=== PATIENT | male | born 1995 | race African-American/Black ===

== ENCOUNTER → 2017-12-09 | Outpatient (CLI) | payer OTHER ==
[2017-12-09 13:25] LABS: Basophils % (A) 1 %; Eosinophils # (A) 0.2 k/uL (0-0.7); Eosinophils % (A) 4 %; HCT 44.5 % (39.0-53.0); HGB 15.1 gm/dL (13.0-17.5); Lymphocytes # (A) 1.7 k/uL (1.0-4.8); Lymphocytes % (A) 37 %; MCH 28.4 pg (25.0-35.0); MCHC 33.9 g/dL (31.0-37.0); MCV 83.7 fL (80.0-100.0); Mean Platelet Volume 8.5; Monocytes # (A) 0.2 k/uL (0-1.0); Monocytes % (A) 5 %; Neutrophils # (A) 2.4 k/uL (1.3-7.7); Neutrophils % (A) 52 %; Platelet Count 176 k/uL (150-450); RBC 5.32 m/uL (4.30-5.90); RDW 12.5 % (11.5-15.5); WBC 4.5 k/uL (4.0-11.0)
[2017-12-09 13:48] LABS: ALT 18 U/L (21-72); AST 17 U/L (17-59); Albumin 4.7 g/dL (3.5-5.0); Alkaline Phosphatase 50 U/L (38-126); Anion Gap 14 mmol/L; Blood Urea Nitrogen 16 mg/dL (9-20); Carbon Dioxide 27 mmol/L (22-30); Chloride 104 mmol/L (98-107); Glucose 91 mg/dL (74-99); Potassium 4.7 mmol/L (3.5-5.1); Sodium 145 mmol/L (137-145); Total Bilirubin 0.6 mg/dL (0.2-1.3); Total Protein 7.7 g/dL (6.3-8.2)
[2017-12-09 19:17] LABS: Vitamin D 25 Hydroxy 24.5 ng/mL (30.0-100.0)
== END | disposition home or self-care (01) ==
LOC: LABWHC1 13:02
PROVIDERS: ATTEND Psychiatry & Neurology Neurology
DX: E55.9 Vitamin D deficiency, unspecified (principal); R53.83 Other fatigue; R41.3 Other amnesia
CPT/HCPCS: 36415; 80053; 82306; 82607; 84207; 84439; 84443; 84481; 85025

== ENCOUNTER 2019-02-17 12:13 | Emergency (ER) | payer OTHER ==
[2019-02-17 12:18] VITALS: BP 123/76; PULSE 73; RESP 18; TEMP 98.7
--- NOTE | 2019-02-17 14:13 | ED ---
General Adult HPI - General Chief complaint: Upper Respiratory Infection Stated complaint: Coughing up blood Time Seen by Provider: 02/17/19 14:02 Source: patient, RN notes reviewed, old records reviewed Mode of arrival: ambulatory Limitations: no limitations - History of Present Illness Initial comments: 23-year-old male patient history of asthma presents ED approximately 2 days of cough, congestion, sore throat, otalgia. Patient denies any fevers or chills nausea vomiting diarrhea at home. Patient denies any chest pain shortness of breath. Patient denies any abdominal pain. Denies any other complaints at this time. Patient is fully vaccinated. Patient does report that he has had a small small amount of blood-streaked mucus. Systemic: Pt denies fatigue, fever/chills, rash. Pt denies weakness, night sweats, weight loss. Neuro: Pt denies headache, visual disturbances, syncope or pre-syncope. HEENT: Pt denies ocular discharge or irritation, otalgia, rhinorrhea, pharyngitis or notable lymphadenopathy. Cardiopulmonary: Pt denies chest pain, SOB, heart palpitations, dyspnea on exertion. Abdominal/GI: Pt denies abdominal pain, n/v/d. : Pt denies dysuria, burning w/ urination, frequency/urgency. Denies new onset urinary or bowel incontinence. MSK: Pt denies myalgia, loss of strength or function in extremities. Neuro: Pt denies new onset weakness, paresthesias. - Related Data Home Medications Medication Instructions Recorded Confirmed Cyclobenzaprine [Flexeril] 5 mg PO TID 05/07/15 05/11/15 Previous Rx's Medication Instructions Recorded Albuterol Inhaler [Ventolin Hfa 1 - 2 puff INHALATION Q4-6H PRN #1 02/17/19 Inhaler] inhaler methylPREDNISolone Dose Pack 4 mg PO DIRECTED #21 package 02/17/19 [Medrol Dose Pack] Allergies Allergy/AdvReac Type Severity Reaction Status Date / Time No Known Drug Allergies Allergy Unknown Verified 05/11/15 13:49 Review of Systems ROS Statement: Those systems with pertinent positive or pertinent negative responses have been documented in the HPI. ROS Other: All systems not noted in ROS Statement are negative. Past Medical History Past Medical History: Asthma Additional Past Medical History / Comment(s): numbness, tingling in eric arm intermittent, bulging disc in neck History of Any Multi-Drug Resistant Organisms: None Reported Additional Past Surgical History / Comment(s): eric tubes in ears Past Anesthesia/Blood Transfusion Reactions: No Reported Reaction Past Psychological History: No Psychological Hx Reported Smoking Status: Never smoker Past Alcohol Use History: Rare Past Drug Use History: Marijuana General Exam - General Exam Comments Initial Comments: Constitutional: NAD, AOX3, Pt has pleasant affect. HEENT: NC/AT, trachea midline, neck supple, no lymphadenopathy. Posterior pharynx non erythematous, without exudates. External ears appear normal, without discharge. TM pale max bilaterally, no bulging, no erythema, no perforation. Mucous membranes moist. Eyes PERRLA, EOM intact. There is no scleral icterus. No pallor noted. Cardiopulmonary: RRR, no murmurs, rubs or gallops, no JVD noted. Lungs CTAB in anterior and posterior montoya. No peripheral edema. Abdominal exam: Abdomen soft and non-distended. Abdomen non-tender to palpation in all 4 quadrants. Bowel sounds active in LLQ. No hepatosplenomegaly. No ecchymosis Neuro: CN II-XII grossly intact. No nuchal rigidity. No raccon eyes, no rojas sign, no hemotympanum. No cervical spinal tenderness. MSK: No posterior calf tenderness bilaterally, homans sign negative bilaterally. Posterior tibialis and radial pulse +2 bilaterally. Sensation intact in upper and lower extremities. Full active ROM in upper and lower extremities, 5/5 stregnth. Limitations: no limitations Course Vital Signs 02/17/19 12:16 Temperature 98.7 F Pulse Rate 73 Respiratory 18 Rate Blood Pressure 123/76 O2 Sat by Pulse 99 Oximetry Medical Decision Making - Medical Decision Making 23-year-old male patient history of asthma presents ED approximately 2 days of cough, congestion, sore throat, otalgia. Patient denies any fevers or chills nausea vomiting diarrhea at home. Patient denies any chest pain shortness of breath. Patient denies any abdominal pain. Denies any other complaints at this time. Patient is fully vaccinated. Patient does report that he has had a small small amount of blood-streaked mucus. Patient vital signs stable, afebrile. Physical exam did not display acute pathology. Influenza, group A strep negative. Chest x-ray displayed no acute process. Patient will be discharged. Patient likely has viral syndrome. Patient will follow-up with primary care of right and 1-2 days. Patient return to ER if condition worsens in any way. Case discussed with Dr. Castelan. - Lab Data Lab Results 02/17/19 02/17/19 Range/Units 14:10 14:10 Influenza Type A RNA Not Detected (Not Detectd) Influenza Type B (PCR) Not Detected (Not Detectd) Group A Strep Rapid Negative (Negative) Disposition Clinical Impression: Viral syndrome, Bronchitis Disposition: HOME SELF-CARE Condition: Stable Instructions (If sedation given, give patient instructions): Viral Syndrome (ED) Additional Instructions: Patient to adhere to previously discussed treatment plan and will take medication(s) as directed. Patient to follow up with PCP in 1-2 days. Patient to return to ED if symptoms do not improve. Follow up with primary care provider in 1-2 days. Return to ER if condition worsens in any way. Prescriptions: methylPREDNISolone Dose Pack [Medrol Dose Pack] 4 mg PO DIRECTED #21 package Albuterol Inhaler [Ventolin Hfa Inhaler] 1 - 2 puff INHALATION Q4-6H PRN #1 inhaler PRN Reason: Cough Is patient prescribed a controlled substance at d/c from ED?: No Referrals: Mehrdad Garcia MD [Primary Care Provider] - 1-2 days
--- NOTE | 2019-02-17 14:29 | XR ---
EXAMINATION TYPE: XR chest 2V DATE OF EXAM: 02/17/2019 COMPARISON: NONE TECHNIQUE: PA and lateral views submitted. HISTORY: Cough FINDINGS: The lungs are clear and there is no pneumothorax, pleural effusion, or focal pneumonia. IMPRESSION: 1. No acute process.
== END 2019-02-17 14:59 | disposition home or self-care (01) ==
LOC: EC 12:13
DX: J45.909 Unspecified asthma, uncomplicated (principal); B34.9 Viral infection, unspecified; Z79.899 Other long term (current) drug therapy
CPT/HCPCS: 71046; 87081; 87430; 87502; 99284

== ENCOUNTER 2021-04-22 01:37 | Emergency (ER) | payer OTHER ==
[2021-04-22 01:45] VITALS: BP 148/90; PULSE 68; RESP 20; TEMP 98.2
--- NOTE | 2021-04-22 02:00 | ED ---
Head Injury HPI - General Chief complaint: Head Injury Stated complaint: Head injury Time Seen by Provider: 04/22/21 01:47 Source: patient, family Mode of arrival: ambulatory Limitations: no limitations - History of Present Illness Initial comments: patient is a 26-year-old male presenting to the emergency Department with complaints of some mild right sided head pain. He states 4 days ago he accidentally hit his head on the corner of the shower door. He states he did not lose consciousness, there is no lacerations or bleeding to the area. He states over the last couple days he's been noticing that the same spot "feels funny." He denies having a significant headache, he states when he pushes on the right side of his head it does feel little tender. He denies any lightheadedness or dizziness, no neck pain. He denies any fevers or chills, no nausea or vomiting, he is not on blood thinners, no blurry vision. He has no further complaints. - Related Data Home Medications Medication Instructions Recorded Confirmed Cyclobenzaprine [Flexeril] 5 mg PO TID 05/07/15 05/11/15 Previous Rx's Medication Instructions Recorded Albuterol Inhaler (Mhu) [Ventolin 1 - 2 puff INHALATION Q4-6H PRN #1 02/17/19 Hfa Inhaler (Mhu)] inhaler methylPREDNISolone Dose Pack 4 mg PO DIRECTED #21 package 02/17/19 [Medrol Dose Pack] Allergies/Adverse reactions: Allergies Allergy/AdvReac Type Severity Reaction Status Date / Time No Known Drug Allergies Allergy Unknown Verified 04/22/21 01:45 Review of Systems ROS Statement: Those systems with pertinent positive or pertinent negative responses have been documented in the HPI. ROS Other: All systems not noted in ROS Statement are negative. Past Medical History Past Medical History: Asthma Additional Past Medical History / Comment(s): numbness, tingling in eric arm intermittent, bulging disc in neck History of Any Multi-Drug Resistant Organisms: None Reported Additional Past Surgical History / Comment(s): eric tubes in ears Past Anesthesia/Blood Transfusion Reactions: No Reported Reaction Past Psychological History: No Psychological Hx Reported Smoking Status: Never smoker Past Alcohol Use History: Rare Past Drug Use History: Marijuana General Exam - General Exam Comments Initial Comments: GENERAL: Patient is well-developed and well-nourished. Patient is nontoxic and in no acute distress. HEAD: Atraumatic, normocephalic. there are no hematomas. No signs of basal skull fracture. EYES: Pupils equal round and reactive to light, extraocular movements intact, sclera anicteric, conjunctiva are normal. Eyelids were unremarkable. ENT: TMs normal, nares patent, oropharynx clear without exudates. Moist mucous membranes. NECK: Normal range of motion, supple without lymphadenopathy or JVD. LUNGS: Unlabored respirations. Breath sounds clear to auscultation bilaterally and equal. No wheezes rales or rhonchi. HEART: Regular rate and rhythm without murmurs, rubs or gallops. ABDOMEN: Soft, nontender, normoactive bowel sounds. No guarding, no rebound. No masses appreciated. : Deferred MUSCULOSKELETAL: Normal extremities with adequate strength and normal range of motion, no pitting or edema. No clubbing or cyanosis. NEUROLOGICAL: Patient is alert and oriented x 3. Motor and sensory are also intact. Cranial nerves II through XII grossly intact. Symmetrical smile. Normal speech, normal gait. PSYCH: Normal mood, normal affect. SKIN: Warm, Dry, normal turgor, no rashes or lesions noted. Limitations: no limitations Course Vital Signs 04/22/21 01:39 Temperature 98.2 F Pulse Rate 68 Respiratory 20 Rate Blood Pressure 148/90 O2 Sat by Pulse 100 Oximetry Medical Decision Making - Medical Decision Making patient is a 26-year-old male here with some mild right-sided head discomfort after he hit it on a shower door 4 days ago. No loss of consciousness, he is not on blood thinners. No acute findings on exam, no acute neuro deficits. His pain is minimal at this time. No dizziness, no blurry visions. patient's CT of the head reveals no acute process. Discussed with patient that he may have a mild concussion. Recommended brain rest. He can take Tylenol or Motrin for any discomfort. He is agreeable to this plan of care and he is stable for discharge. He can follow up with his primary care physician. Disposition Clinical Impression: Mild concussion Disposition: HOME SELF-CARE Condition: Stable Instructions (If sedation given, give patient instructions): Concussion (ED) Additional Instructions: Please return to the Emergency Department if symptoms worsen or any other concerns. Continue to rest, limit up close activities such as phone usage, reading. Follow-up with your family doctor. Is patient prescribed a controlled substance at d/c from ED?: No Referrals: Mehrdad Garcia MD [Primary Care Provider] - 1-2 days Time of Disposition: 02:34
--- NOTE | 2021-04-22 02:16 | CT ---
EXAMINATION TYPE: CT brain wo con DATE OF EXAM: 04/22/2021 COMPARISON: 01/31/2012 HISTORY: headache, hit head, rt sided head pain CT DLP: 1125.40 mGycm Automated exposure control for dose reduction was used. Images obtained of the brain with no contrast. Ventricles have normal size. There is no mass effect nor midline shift. There is no sign of intracran ial hemorrhage. The calvarium is intact. IMPRESSION: Negative unenhanced head CT scan. No change.
== END 2021-04-22 02:43 | disposition home or self-care (01) ==
LOC: EC 01:37
DX: S06.0X0A Concussion without loss of consciousness, initial encounter (principal); J45.909 Unspecified asthma, uncomplicated; F12.90 Cannabis use, unspecified, uncomplicated; W22.8XXA Striking against or struck by other objects, initial encounter
CPT/HCPCS: 70450; 99284

== ENCOUNTER 2022-07-07 15:45 | Emergency (ER) | payer OTHER ==
[2022-07-07 16:14] VITALS: BP 124/75; PULSE 69; RESP 20; TEMP 98.2
--- NOTE | 2022-07-07 16:50 | XR ---
EXAMINATION TYPE: XR foot complete LT DATE OF EXAM: 07/07/2022 COMPARISON: NONE HISTORY: Sliver in the lateral foot TECHNIQUE: 3 views FINDINGS: Metatarsals are intact. I see no fracture nor dislocation. No evidence of radiopaque foreig n body. IMPRESSION: Negative left foot exam. A wood sliver is likely not visible on a plain x-ray. Ultrasound likely could detect a foreign body.
[2022-07-07] MEDS ORDERED: LIDOCAINE 1% INJ 10MG/ML (30 ML VIAL-PF) SQ ONE (17:34)
--- NOTE | 2022-07-07 17:41 | ED ---
Lower Extremity Injury HPI - General Chief Complaint: Extremity Injury, Lower Stated Complaint: [facility] - Sliver in foot Time Seen by Provider: 07/07/22 17:07 Source: patient, RN notes reviewed, old records reviewed Mode of arrival: ambulatory Limitations: no limitations - History of Present Illness Initial Comments: 27-year-old well-appearing male presents to the emergency room after kicking a wood pallet sustaining a splinter to his left foot lateral fifth metatarsal. Patient states he can feel the splinter just under the skin. States tetanus shot is up-to-date. MD Complaint: foot injury -: hour(s) (2) Type of Injury: puncture wound (wood splinter) - Related Data Home Medications Medication Instructions Recorded Confirmed Cyclobenzaprine [Flexeril] 5 mg PO TID 05/07/15 05/11/15 Previous Rx's Medication Instructions Recorded Albuterol Inhaler [Ventolin Hfa 1 - 2 puff INHALATION Q4-6H PRN #1 02/17/19 Inhaler] inhaler methylPREDNISolone Dose Pack 4 mg PO DIRECTED #21 package 02/17/19 [Medrol Dose Pack] Cephalexin [Keflex] 500 mg PO Q6HR 7 Days #28 cap 07/07/22 Allergies Allergy/AdvReac Type Severity Reaction Status Date / Time No Known Drug Allergies Allergy Unknown Verified 07/07/22 16:13 Review of Systems ROS Statement: Those systems with pertinent positive or pertinent negative responses have been documented in the HPI. ROS Other: All systems not noted in ROS Statement are negative. Past Medical History Past Medical History: Asthma Additional Past Medical History / Comment(s): numbness, tingling in eric arm intermittent, bulging disc in neck History of Any Multi-Drug Resistant Organisms: None Reported Additional Past Surgical History / Comment(s): eric tubes in ears Past Anesthesia/Blood Transfusion Reactions: No Reported Reaction Past Psychological History: No Psychological Hx Reported Smoking Status: Never smoker Past Alcohol Use History: Rare Past Drug Use History: Marijuana General Exam Limitations: no limitations General appearance: alert, in no apparent distress Head exam: Present: atraumatic Eye exam: Present: normal appearance. Absent: scleral icterus, conjunctival injection, periorbital swelling Neck exam: Present: full ROM. Absent: meningismus Respiratory exam: Absent: respiratory distress, accessory muscle use Cardiovascular Exam: Present: regular rate Extremities exam: Present: full ROM, normal capillary refill. Absent: pedal edema Left Foot/Toe exam: Present: tenderness, puncture wound (1 cm FB felt under the skin superficially no active bleeding) Neurovascular tendon exam: Present: no vascular compromise. Absent: abnormal cap refill, pallor, foot drop Neurological exam: Present: alert, oriented X3 Psychiatric exam: Present: normal affect, normal mood Skin exam: Present: warm, dry, normal color. Absent: cyanosis, diaphoretic Course Vital Signs 07/07/22 16:12 Temperature 98.2 F Pulse Rate 69 Respiratory 20 Rate Blood Pressure 124/75 O2 Sat by Pulse 100 Oximetry Procedures - Forgein Body Removal Soft Tissue Consent Obtained: verbal consent Site: foot (left) Anesthetic Used: lidocaine 1% Foreign Body Suspected: Wood Foreign Body Removed: yes (1cm) Foreign Body Removal Technique: Instrumentation Patient Tolerated Procedure: well Medical Decision Making - Medical Decision Making X-ray shows no evidence of foreign body, foreign body felt subcutaneously. 1 cm wooden splinter removed from the dorsal surface of the fifth metatarsal with no complications. Bacitracin dressing applied. Patient was directed to soak foot twice a day in warm soapy water. States tetanus shot was given 2 years ago and is up-to-date. He was prescribed antibiotics. Directed to return to the emergency room with any new or concerning symptoms Case discussed with Dr. Castelan Disposition Clinical Impression: Foreign body in foot, left Disposition: HOME SELF-CARE Additional Instructions: Soak foot in warm soapy water twice a day for the next 3 days. Take antibiotics as prescribed. Return to the emergency room with any new or concerning symptoms. Prescriptions: Cephalexin [Keflex] 500 mg PO Q6HR 7 Days #28 cap Is patient prescribed a controlled substance at d/c from ED?: No Referrals: Mehrdad Garcia MD [Primary Care Provider] - 1-2 days Time of Disposition: 18:13
[2022-07-07] MEDS ORDERED: BACITRACIN OINT 1 EACH PACKET TOPICAL ONE (18:13)
== END 2022-07-07 18:30 | disposition home or self-care (01) ==
LOC: EC 15:45
DX: S90.852A Superficial foreign body, left foot, initial encounter (principal); J45.909 Unspecified asthma, uncomplicated; Z79.51 Long term (current) use of inhaled steroids; W45.8XXA Other foreign body or object entering through skin, initial encounter; Y92.89 Other specified places as the place of occurrence of the external cause
CPT/HCPCS: 73630; 99283; J2001

== ENCOUNTER → 2022-11-24 | Outpatient (CLI) | payer BC ==
--- NOTE | 2022-11-24 09:44 | US ---
EXAMINATION TYPE: US abdomen complete DATE OF EXAM: 11/24/2022 COMPARISON: NONE CLINICAL HISTORY: R10.10 ABD PAIN. Intermittent RUQ pain & nausea x couple months, worse after eating TECHNIQUE: Multiple sonographic images of the abdomen are obtained. FINDINGS: EXAM MEASUREMENTS: Liver Length: 17.0 cm Gallbladder Wall: 0.2 cm CBD: 0.2 cm Spleen: 11.6 cm Right Kidney: 11.2 x 4.7 x 4.8 cm Left Kidney: 9.5 x 5.5 x 5.6 cm Pancreas: visualized portions wnl, tail limited by overlying midline bowel gas Liver: measures in upper limits of normal Gallbladder: wnl Evidence for sonographic Saenz's sign: no CBD: wnl Spleen: wnl Right Kidney: wnl Left Kidney: inferior pole limited by overlying bowel gas Upper IVC: wnl Abd Aorta: visualized portions wnl, limited by overlying midline bowel gas The liver is homogenous. The intrahepatic portion of the IVC and visualized abdominal aorta are with in normal limits. There is no evidence of shadowing mobile cholelithiasis. Common bile duct is unre markable. The visualized portions of the pancreas are homogenous. Distal body and tail obscured by o verlying bowel gas. The spleen is unremarkable. Kidneys are symmetric and free of hydronephrosis. N o renal lesions are seen on images obtained. IMPRESSION: No acute findings are present.
== END | disposition home or self-care (01) ==
LOC: RADUSWWP 08:58
PROVIDERS: ATTEND Family Medicine
DX: R10.11 Right upper quadrant pain (principal)
CPT/HCPCS: 76700